=== PATIENT | female | born 1950 | race Caucasian/White ===

== ENCOUNTER 2022-05-17 16:41 | Inpatient (IN) ==
[2022-05-17] MEDS ORDERED: ACETAMINOPHEN 325 MG TABLET PO PRN (16:50)
[2022-05-17] MEDS ORDERED: ONDANSETRON 4 MG/2 ML VIAL IV PRN (16:50)
[2022-05-17] MEDS ORDERED: ALBUTEROL/IPRATROPIUM 3 ML NEB RESP TX PRN (17:02)
[2022-05-17] MEDS ORDERED: ZALEPLON 5 MG CAPSULE PO PRN (17:10)
[2022-05-17 18:30] LABS: Basophils # 0.1 10*3/uL (0.0-0.2); Basophils % 0.8 % (0.0-0.8); Eosinophils # 0.3 10*3/uL (0.0-0.87); Eosinophils % 2.4 % (0.00-10.9); Hematocrit 45.8 VOL% (35.7-47.0); Hemoglobin 15.6 GM/DL (12.0-16.0); Immature Granulocytes % 0.4 %; Immature Granulocytes Absolute 0.04 #; Lymphocytes # 3.7 10*3/uL (1.4-4.0); Lymphocytes % 34.7 % (21.3-54.2); Mean Corpuscular HGB Conc 34.1 GM/DL (32-36); Mean Corpuscular Volume 85.1 FL (87-102); Mean Platelet Volume 11.2 FL (9.6-12.0); Monocytes # 0.8 10*3/uL (0.11-0.8); Monocytes % 7.7 % (1.7-12.7); Platelet Count 466 T/CUMM (130-400); Red Blood Count 5.38 MC/CUMM (3.8-5.5); White Blood Count 10.6 T/CUMM (4-12)
[2022-05-17] MEDS: PANTOPRAZOLE 40 MG TABLET PO SCH (18:41)
[2022-05-17 18:50] LABS: Albumin 4.2 G/DL (3.4-5.0); Bilirubin,Total 0.9 MG/DL (0.20-1.00); Calcium 9.6 MG/DL (8.5-10.1); Osmolality,Calculated 282.4 MOS/KG (273-304); Potassium 3.8 MMOL/L (3.5-5.1); Total Protein 7.9 G/DL (6.4-8.2)
[2022-05-17] MEDS: SIMVASTATIN 20 MG TABLET PO SCH (20:20)
[2022-05-17] MEDS: GABAPENTIN 600 MG TABLET PO SCH (20:20)
[2022-05-17] MEDS: SODIUM CHLORIDE 0.45% 1,000 ML IV SCH (20:22)
[2022-05-17] MEDS: INSULIN LISPRO 100 UNIT/ML SUBCUT SCH (20:52)
[2022-05-18 03:36] LABS: Bilirubin,Urine Moderate mg/dL (Negative); Blood, Urine Small mg/dL (Negative); Glucose,Urine (UA) Negative (Negative); Hyaline Casts,Urine 36 /LPF (0-3); Ketones,Urine 15 mg/dL (Negative); Mucus,Urine Occasional /LPF (Occasional); Nitrite,Urine Negative (Negative); Protein,Urine >=300 mg/dL (Negative); RBC,Urine 24 /HPF (0-4); Squamous Epithelial Cell,Urine Few /HPF (0-10); Urine Appearance Slightly Cloudy (Clear); Urine Color Yellow (Yellow); Urine Specific Gravity > 1.030 (1.001-1.035)
[2022-05-18 03:37] LABS: Urine Urobilinogen 0.2 eU/dL (<2.0)
[2022-05-18] MEDS: SODIUM CHLORIDE 0.45% 1,000 ML IV SCH ×2 (03:37→15:18)
[2022-05-18 04:50] LABS: Basophils # 0.1 10*3/uL (0.0-0.2); Basophils % 0.6 % (0.0-0.8); Eosinophils # 0.3 10*3/uL (0.0-0.87); Eosinophils % 3.6 % (0.00-10.9); Hematocrit 38.6 VOL% (35.7-47.0); Hemoglobin 12.9 GM/DL (12.0-16.0); Immature Granulocytes % 0.3 %; Immature Granulocytes Absolute 0.02 #; Lymphocytes # 3.1 10*3/uL (1.4-4.0); Lymphocytes % 39.8 % (21.3-54.2); Mean Corpuscular HGB Conc 33.4 GM/DL (32-36); Mean Corpuscular Volume 85.6 FL (87-102); Mean Platelet Volume 10.8 FL (9.6-12.0); Monocytes # 0.7 10*3/uL (0.11-0.8); Monocytes % 9.1 % (1.7-12.7); Neutrophils % 46.6 % (38.7-73.9); Platelet Count 302 T/CUMM (130-400); Red Blood Count 4.51 MC/CUMM (3.8-5.5); Red Cell Distribution Width 12.8 % (9.3-17.3); White Blood Count 7.8 T/CUMM (4-12)
[2022-05-18] MEDS: PANTOPRAZOLE 40 MG TABLET PO SCH (05:05)
[2022-05-18 05:18] LABS: Calcium 8.5 MG/DL (8.5-10.1); Osmolality,Calculated 279.7 MOS/KG (273-304); Potassium 4.1 MMOL/L (3.5-5.1); Risk Ratio 3.56; VLDL Cholesterol 31.8 MG/DL
[2022-05-18] MEDS: THYROID 60 MG TABLET PO SCH (06:34)
[2022-05-18] MEDS: INSULIN LISPRO 100 UNIT/ML SUBCUT SCH ×4 (07:18→21:30)
[2022-05-18] MEDS: atenoloL 25 MG TABLET PO SCH (08:21)
[2022-05-18] MEDS: GABAPENTIN 600 MG TABLET PO SCH ×2 (08:21→21:25)
[2022-05-18] MEDS: SOLIFENACIN 5 MG TABLET PO SCH (08:21)
[2022-05-18] MEDS ORDERED: BISACODYL 5 MG TABLET PO ONE (15:00)
[2022-05-18] MEDS ORDERED: POLYETHYLENE GLYCOL POWDER 255 GM BOTTLE PO ONE (18:00)
[2022-05-18] MEDS: SIMVASTATIN 20 MG TABLET PO SCH (21:25)
[2022-05-19] MEDS ORDERED: POLYETHYLENE GLYCOL POWDER 255 GM BOTTLE PO ONE (05:00)
[2022-05-19] MEDS: THYROID 60 MG TABLET PO SCH (05:33)
[2022-05-19] MEDS: PANTOPRAZOLE 40 MG TABLET PO SCH (05:33)
[2022-05-19 05:46] LABS: Basophils % 0.5 % (0.0-0.8); Eosinophils # 0.2 10*3/uL (0.0-0.87); Eosinophils % 3.2 % (0.00-10.9); Hematocrit 36.7 VOL% (35.7-47.0); Hemoglobin 12.5 GM/DL (12.0-16.0); Immature Granulocytes % 0.3 %; Immature Granulocytes Absolute 0.02 #; Lymphocytes # 1.8 10*3/uL (1.4-4.0); Lymphocytes % 30.1 % (21.3-54.2); Mean Corpuscular HGB Conc 34.1 GM/DL (32-36); Mean Corpuscular Volume 84.2 FL (87-102); Mean Platelet Volume 11.2 FL (9.6-12.0); Monocytes # 0.5 10*3/uL (0.11-0.8); Monocytes % 8.8 % (1.7-12.7); Neutrophils % 57.1 % (38.7-73.9); Platelet Count 193 T/CUMM (130-400); Red Blood Count 4.36 MC/CUMM (3.8-5.5); Red Cell Distribution Width 12.6 % (9.3-17.3); White Blood Count 5.9 T/CUMM (4-12)
[2022-05-19 05:48] LABS: INR 1.1; PT Patient Result 11.7 SECS (10.5-12.0)
[2022-05-19 05:54] LABS: Calcium 8.5 MG/DL (8.5-10.1); Osmolality,Calculated 272.8 MOS/KG (273-304); Potassium 2.7 MMOL/L (3.5-5.1)
[2022-05-19] MEDS ORDERED: POTASSIUM CHLORIDE INJ 20 MEQ in SODIUM CHLORIDE 0.45% 1,000 ML IV SCH (07:45)
[2022-05-19] MEDS: INSULIN LISPRO 100 UNIT/ML SUBCUT SCH ×4 (08:38→21:05)
[2022-05-19] MEDS: POTASSIUM CHLORIDE RIDER 10 MEQ/100 ML PREMIX IV SCH ×3 (09:18→11:31)
[2022-05-19] MEDS: SODIUM CHLOR 0.45% KCL 20 MEQ 20 MEQ/1,000 ML BAG IV SCH ×2 (09:20→22:35)
[2022-05-19] MEDS: GABAPENTIN 600 MG TABLET PO SCH ×2 (09:51→21:04)
[2022-05-19] MEDS: atenoloL 25 MG TABLET PO SCH (09:51)
[2022-05-19] MEDS: SOLIFENACIN 5 MG TABLET PO SCH (09:51)
[2022-05-19] MEDS: LACTATED RINGERS 1,000 ML IV SCH (13:22)
[2022-05-19] MEDS: SIMVASTATIN 20 MG TABLET PO SCH (21:04)
[2022-05-19] MEDS: SODIUM CHLORIDE 0.45% 1,000 ML IV SCH (22:13)
[2022-05-20 04:45] LABS: Basophils # 0.1 10*3/uL (0.0-0.2); Eosinophils # 0.3 10*3/uL (0.0-0.87); Eosinophils % 4.3 % (0.00-10.9); Hematocrit 40.6 VOL% (35.7-47.0); Hemoglobin 13.5 GM/DL (12.0-16.0); Immature Granulocytes % 0.3 %; Immature Granulocytes Absolute 0.02 #; Lymphocytes # 2.4 10*3/uL (1.4-4.0); Lymphocytes % 33.1 % (21.3-54.2); Mean Corpuscular HGB Conc 33.3 GM/DL (32-36); Mean Corpuscular Volume 87.7 FL (87-102); Monocytes # 0.6 10*3/uL (0.11-0.8); Monocytes % 8.7 % (1.7-12.7); Neutrophils % 52.6 % (38.7-73.9); Platelet Count 338 T/CUMM (130-400); Red Blood Count 4.63 MC/CUMM (3.8-5.5); Red Cell Distribution Width 12.9 % (9.3-17.3); White Blood Count 7.1 T/CUMM (4-12)
[2022-05-20 05:08] LABS: Calcium 9.2 MG/DL (8.5-10.1); Potassium 3.9 MMOL/L (3.5-5.1)
[2022-05-20] MEDS: PANTOPRAZOLE 40 MG TABLET PO SCH (05:51)
[2022-05-20] MEDS: THYROID 60 MG TABLET PO SCH (05:51)
[2022-05-20] MEDS: SODIUM CHLOR 0.45% KCL 20 MEQ 20 MEQ/1,000 ML BAG IV SCH ×2 (06:39→09:32)
[2022-05-20] MEDS: INSULIN LISPRO 100 UNIT/ML SUBCUT SCH ×2 (08:27→13:39)
[2022-05-20] MEDS: GABAPENTIN 600 MG TABLET PO SCH (08:47)
[2022-05-20] MEDS: atenoloL 25 MG TABLET PO SCH (08:47)
[2022-05-20] MEDS: SOLIFENACIN 5 MG TABLET PO SCH (08:47)
[2022-05-20] MEDS: LACTATED RINGERS 1,000 ML IV SCH (09:32)
[2022-05-20 12:06] VITALS: BP 139/75
[2022-05-20 13:21] LABS: CDT Result Negative (Negative); CDT Specimen Source STOOL
== END 2022-05-20 15:27 | disposition home or self-care (01) | DRG 392 ==
LOC: N.3E 17:02
PROVIDERS: ADMIT Family Medicine; ATTEND Family Medicine
PROC: COLONBX (2022-05-19 11:20)